=== PATIENT | male | born 1960 | race Caucasian/White ===

== ENCOUNTER 2018-07-27 00:48 | Emergency (ER) | payer OTHER ==
[2018-07-27] MEDS: LIDOCAINE 2% JEL.PF.APP 5 ML UROJET SYRINGE MM (01:27)
[2018-07-27] MEDS: ONDANSETRON 4 MG INJ IV (03:06)
[2018-07-27] MEDS: morphine 4 MG/ML VIAL IV (03:06)
[2018-07-27] MEDS: SOD CHLORIDE 0.9% 500 ML IV (03:06)
[2018-07-27 03:17] LABS: ADD MAN DIFF? NO
[2018-07-27 03:25] LABS: BASOPHILS % 0.3 % (0.0-2.0); EOSINOPHILS % 0.1 % (0.0-7.0); HEMATOCRIT 43.9 % (42.0-52.0); HEMOGLOBIN 15.2 g/dl (14.0-18.0); LYMPHOCYTES # 1.7 10^3/ul (0.8-2.9); LYMPHOCYTES % 15.6 % (15.0-51.0); MEAN CORPUSCULAR HEMOGLOBIN 30.3 pg (29.0-33.0); MEAN CORPUSCULAR HGB CONC 34.6 g/dl (32.0-37.0); MEAN CORPUSCULAR VOLUME 87.5 fl (82.0-101.0); MEAN PLATELET VOLUME 10.5 fl (7.4-10.4); MONOCYTE # 1.1 10^3/ul (0.3-0.9); MONOCYTES % 10.7 % (0.0-11.0); NEUTROPHIL # 7.8 10^3/ul (1.6-7.5); NEUTROPHILS % 72.8 % (39.0-77.0); PLATELET COUNT 313 10^3/UL (140-415); RED BLOOD COUNT 5.02 10^6/ul (4.70-6.10); RED CELL DISTRIBUTION WIDTH 12.2 % (11.5-14.5)
[2018-07-27 03:25] LABS: WHITE BLOOD COUNT 10.7 10^3/ul (4.8-10.8)
[2018-07-27 03:51] LABS: ANION GAP 12 (5-13); BLOOD UREA NITROGEN 13 mg/dl (7-20); CALCIUM 10.3 mg/dl (8.4-10.2); CARBON DIOXIDE 22 mmol/L (21-31); CHLORIDE 104 mmol/L (97-110); CREATININE 0.73 mg/dl (0.61-1.24); Estimated GFR > 60 mL/min (>60); GLUCOSE 101 mg/dl (70-220); POTASSIUM 3.6 mmol/L (3.5-5.1); SODIUM 138 mmol/L (135-144)
[2018-07-27] MEDS: MAGNESIUM CITRATE 300 ML BTL PO (04:25)
== END 2018-07-27 04:44 | disposition home or self-care (01) ==
LOC: E/R 00:48
DX: R10.84 Generalized abdominal pain (principal); K59.03 Drug induced constipation
CPT/HCPCS: 36415; 74176; 80048; 85025; 96374; 96375; 99285-25

== ENCOUNTER 2018-07-29 10:42 | Emergency (ER) | payer OTHER | END 2018-07-29 12:40 | disposition home or self-care (01) | LOC: FTE 10:42 | DX: Z46.6 Encounter for fitting and adjustment of urinary device (principal) | CPT/HCPCS: 99283; Z7502 ==